=== PATIENT | female | born 1985 | race Caucasian/White ===

== ENCOUNTER 2021-05-17 16:38 | Observation (INO) | payer BC ==
[~2021-05-17] VITALS: Ht 157.5 cm; Wt 110.5 kg
--- NOTE | 2021-05-17 10:30 | NUR ---
1030- Quarter size spot of blood noted in pad. Some blood on toilet paper, but no clots noted. New pad applied. 0015- quarter size spot of blood in pad. Bright red in color. No clots noted in pad or toilet. New pad applied. 0155- quarter size amount of blood in pad. Bright red in color, but no clots noted in pad or toilet. New pad applied. 0400- quarter size amount of blood in pad. Bright red in color. No clots in pad or toilet. New pad applied. 0530- quarter size amount of blood in pad. Bright red in color. No clots in pad or toilet. New pad applied.
[~2021-05-17 16:38] MED LIST: BACTRIM DS 8001 TAB PO; CLEOCIN HCL300 MG PO; CRYSELLE 30 MCG1 TAB PO; DOXYCYCLINE 10100 MG PO; MIRENA52 MG IU; MULTIPLE VITAMI1 TA5 PO; MULTIPLE VITAMI1 TAB PO; MVI; PREDNISONE20 MG PO; PRILOSEC 20MG20 MG PO; VITAMIN C500 MG PO; ZITHROMAX Z PA250 MG PO
[2021-05-17] MEDS ORDERED: PROAIR HFA0.09 MG/AC IH (17:08)
[2021-05-17] MEDS ORDERED: PRENATAL (17:08)
[2021-05-17] MEDS ORDERED: ZOLOFT 100MG100 MG PO (17:09)
[2021-05-17] MEDS ORDERED: VITAMINC1000TA (17:09)
--- NOTE | 2021-05-17 17:25 | NUR ---
1725-G3L3 28.3 week twin gestation patient of Dr. Payan's ambulatory to LR 2 after being seen with vaginal bleeding and had spec exam in office this afternoon. In office cervix was closed. Has had a pad on and pad has minimal old blood. Reports "some movement." placed on EFM. Difficulty tracing heart rates. Continously adjusting monitors. MD to patient room. Bedside sono used to identify twin a and twin b heart rates. Orders to obtain CMP with previosly ordered labs for elevated BP 140's /60's. IV to right hand, blood collected and sent to lab per orders. LR infusing per orders. Assessment complete. 1830-Reported off to oncoming nurse.
[2021-05-17 18:00] VITALS: BP 146/68; PULSE 100
[2021-05-17 18:29] LABS: BASO % 0.2 % (0.0-2.0); EOS # 0.1 (0.0-0.7); EOS % 0.8 % (0-4.0); GRAN # 10.5 (1.4-6.5); GRAN % 79.1 % (42.2-75.2); HEMOGLOBIN 12.2 g/dl (12.5-16.0); LYMPH # 2.1 (1.2-3.4); LYMPH % 15.5 % (20.0-51.0); MEAN CELL VOLUME 96 fl (80.0-100.0); MEAN CORPUSCULAR HEMOGLOBIN 32 pg (27.0-31.0); MEAN CORPUSCULAR HGB CONC 33 g/dl (33.0-37.0); MEAN PLATELET VOLUME 9.7 fl (7.4-10.4); MONO # 0.5 (0.1-0.6); MONO % 3.8 % (1.7-9.3); PLATELET COUNT 333 K/mm3 (130-400); RED BLOOD COUNT 3.81 M/mm3 (4.10-5.30)
[2021-05-17 18:30] VITALS: BP 139/75; PULSE 100
[2021-05-17 18:38] LABS: HEMATOCRIT 36.7 % (37.0-47.0)
[2021-05-17 18:41] LABS: ALBUMIN 3.4 gm/dL (3.5-5.0); BILIRUBIN,TOTAL 0.3 mg/dL (0.0-1.0); CALCIUM 9.5 mg/dL (8.4-10.2); CREATININE, serum 0.39 (0.52-1.25); POTASSIUM 3.8 mmol/L (3.4-5.0); TOTAL PROTEIN 6.3 gm/dL (6.4-8.2)
[2021-05-17 19:00] VITALS: BP 137/79; PULSE 99; TEMP 98.5
[2021-05-17 19:30] VITALS: BP 124/57; PULSE 94
[2021-05-17 20:00] VITALS: BP 133/75; PULSE 96
[2021-05-17 20:24] VITALS: PULSE 93
[2021-05-18 00:30] VITALS: PULSE 90
[2021-05-18 01:00] VITALS: BP 143/78; PULSE 90; TEMP 98.4
--- NOTE | 2021-05-18 01:13 | NUR ---
[id number]: EFM X2 placed. Difficulty tracing FHR X2. RN remains at bedside to adjust monitors. 0138: TOCO placed at this time after FHR found. Pt denies contractions or cramping at this time. Baby B EFM hand held by this RN.
[2021-05-18 01:20] VITALS: PULSE 88
[2021-05-18 06:26] VITALS: BP 154/80; PULSE 82; TEMP 97.8
--- NOTE | 2021-05-18 08:10 | NUR ---
0810- Pt up to void independently. Peripad show scant amount of medium red/brown blood on pad, approximately quarter sized. Pt denies pain, cramping, contractions.
[2021-05-18 11:00] VITALS: BP 131/75; PULSE 89
--- NOTE | 2021-05-18 11:03 | NUR ---
1012- Baby A tracing intermittently with the thin line on monitor paper. 1014- Baby A tracing mostly continuously. 1015- Baby B monitor on, difficut to find and maintain tracing. Assistance provided by RANJANA Baugh and RANJANA Holm. 1045- TOCO on and tracing. Pt denies cramping or contractions. 1049- Baby B tracing mostly continuously. RN remains at bedside holding monitor. 1102- EFM and TOCO off.
--- NOTE | 2021-05-18 15:02 | NUR ---
1502- EFM of baby A applied and tracing well. 1505- EFM for baby B appled, difficulty maintaining a continuous strip. RN remains at bedside holding and adjusting EFM. 1512- TOCO applied. Pt denies cramping or contractions. 1537- EFM and TOCO off. 1545- Dr Payan updated on strip and Pt condition, see physician notification.
[2021-05-18 16:05] VITALS: BP 143/87; PULSE 88; TEMP 97.8
== END 2021-05-18 16:40 | disposition home or self-care (01) ==
LOC: LDR 17:14
PROVIDERS: ADMIT Obstetrics & Gynecology
DX: O46.93 Antepartum hemorrhage, unspecified, third trimester (principal); O30.033 Twin pregnancy, monochorionic/diamniotic, third trimester; Z3A.39 39 weeks gestation of pregnancy; E78.00 Pure hypercholesterolemia, unspecified; K21.9 Gastro-esophageal reflux disease without esophagitis; J45.909 Unspecified asthma, uncomplicated; F41.9 Anxiety disorder, unspecified; F32.9 Major depressive disorder, single episode, unspecified; Z79.899 Other long term (current) drug therapy; Z3A.30 30 weeks gestation of pregnancy; Z82.49 Family history of ischemic heart disease and other diseases of the circulatory system
CPT/HCPCS: G0378; J0702; J7120

== ENCOUNTER → 2021-06-09 | Outpatient (CLI) | payer BC ==
[~2021-06-09] MED LIST changes: +LEVEMIR FLEX100 U/ML SQ; +MOTRIN 800800 MG/TAB PO; +PERCOCET 325 MG1 TA3 PO; +PRENATAL; +PROAIR HFA0.09 MG/AC IH; +PROCARDIA XL 3030 MG PO; +VITAMINC1000TA; +ZOLOFT 100MG100 MG PO
== END ==
LOC: DIA.ED 09:39
DX: O24.419 Gestational diabetes mellitus in pregnancy, unspecified control (principal)
CPT/HCPCS: G0108

== ENCOUNTER 2021-06-27 08:53 | Inpatient (IN) | payer BC ==
[~2021-06-27] VITALS: Ht 157.5 cm; Wt 110.0 kg
[2021-06-27] VITALS (27 sets, daily range): BP systolic 103–186; BP diastolic 55–103; PULSE 64–88; TEMP 97.6–98.8
[~2021-06-27 08:53] MED LIST changes: -LEVEMIR FLEX100 U/ML SQ; -MOTRIN 800800 MG/TAB PO; -PERCOCET 325 MG1 TA3 PO; -PROCARDIA XL 3030 MG PO
--- NOTE | 2021-06-27 09:25 | NUR ---
Admits to L&D, ambulatory, accompanied by spouse, with c/o "My water broke at home at 0730 this am." Reports she was lying in bed, had just emptied bladder less than an hour earlier, and felt a huge gush of water.
--- NOTE | 2021-06-27 09:45 | NUR ---
Initial SVE /-2, no gel used with explanation to patient prior to exam. Amnitrace positive. notified @ 3007. Telephone orders received, on chart.
[2021-06-27] MEDS ORDERED: ZOLOFT 100MG100 MG PO (09:54)
[2021-06-27] MEDS ORDERED: LEVEMIR FLEX100 U/ML SQ (09:58)
--- NOTE | 2021-06-27 10:35 | NUR ---
here for evaluation. Discusses possibility of shipping patient to higher level of care facility, as infants have increased risk of requiring higher level of nursery care, with mom being IDGDM, and infants being pre-term. Discussed would evaluate to see if it is safe to transfer. Upon SVE, note patient has made some cervical change. Patient states, "Honestly, I don't think we have time to transfer. I feel like it is going fast. My contractions are getting stronger."
[2021-06-27 10:58] LABS: HEMATOCRIT 40.8 % (37.0-47.0); MEAN CELL VOLUME 94 fl (80.0-100.0); MEAN CORPUSCULAR HEMOGLOBIN 32 pg (27.0-31.0); MEAN CORPUSCULAR HGB CONC 34 g/dl (33.0-37.0); PLATELET COUNT 174 K/mm3 (130-400); RED BLOOD COUNT 4.35 M/mm3 (4.10-5.30); REDCELL DISTRIBUTION WIDTH-CV 14.8 % (11.5-14.5)
[2021-06-27 11:13] LABS: ALBUMIN 2.2 gm/dL (3.5-5.0); BILIRUBIN,TOTAL 0.6 mg/dL (0.2-1.2); CALCIUM 9.1 mg/dL (8.4-10.2); CREATININE, serum 0.83 mg/dL (0.57-1.11); POTASSIUM 4.5 mmol/L (3.5-4.5)
--- NOTE | 2021-06-27 11:19 | NUR ---
TAHIR Cat, here for epidural placement per patient request. Single shot dose by Linda Francisco @ 1128. After threading catheter, announces catheter was threaded through vein, so needs to replace epidural. Patient verbalizes understanding. 2nd single shot dose in 2nd epidural space @ 1132. Patient tolerates procedure well. No adverse reactions noted.
--- NOTE | 2021-06-27 11:23 | NUR ---
Sitting up @ side of bed for epidural placement. Off of EFM during time of epidural placement [id number].
[2021-06-27 11:37] LABS: BAND 3 % (0-10); EOSINOPHIL 2 % (0-4); LYMPHOCYTE 45 % (20.0-51.0); NEUTROPHILS 43 % (42.0-75.2); PLATELET ESTIMATE NORMAL (NORMAL)
--- NOTE | 2021-06-27 12:26 | NUR ---
Transferred to OR in preparation for twin gestation delivery per bed @ this time. /TAHIR Cat, notified. 1228-EFM restarted once in OR. 1238-Emory Hollis CRNA, here for delivery. Braden RN, Lupis, RN, Alta, RN, Eris, RN, and Jordyn, RANJANA, all additional staff in for delivery. , site specialist also present.
--- NOTE | 2021-06-27 12:40 | NUR ---
C/+2 per . Pushes one time during one contraction. 1243-Rapid of male , baby A by over intact perineum. [id number]: Ultrasound guided multiple attempts at external cephalic version by /. Attempts all unsuccessful, fetus remains footling breech. makes decision to proceed with primary section. Patient/spouse verbalize understanding. Abdominal prep by . 1300-Surgery start. 1302- delivery of 2nd male (baby B), passed off to nursery nurses/. Note infant footling breech. 1304-Placenta expressed by /.
--- NOTE | 2021-06-27 12:45 | NUR ---
Note OR tech in room Ebenezer Alexander, travel tech, not in system under PCW. Per Ebenezer, user name [id number].
--- NOTE | 2021-06-27 15:11 | NUR ---
Rating pain "15" of 10 @ this time.
--- NOTE | 2021-06-27 21:30 | NUR ---
2130-PT AVERAGING 30ML PER HOUR URINE OUTPUT WITH DARK YELLOW URINE NOTED IN DRAINING INTO BURGESS. PT ENCOURAGED SEVERAL TIMES TO DRINK MORE WATER AND FLUIDS. WILL CONTINUE TO MONITOR URINARY OUTPUT.
--- NOTE | 2021-06-27 22:30 | NUR ---
2229-DR OLSON NOTIFIED OF POOR URINARY OUTPUT OF 30ML PER HOUR OR LESS SINCE 1800 TONIGHT. ORDERS RECEIVED TO GIVE 500ML IV BOLUS OF LR AND THEN INFUSE AT 125ML/HOUR AFTERWARDS. 2244-VSS AT [facility] LR STARTED AT THIS TIME
--- NOTE | 2021-06-28 00:20 | NUR ---
0020-IV FLUID BOLUS OF 500ML HAS INFUSED AND IV RATE DECREASED TO 125/HR PER PUMP. 70ML URINE NOTED AFTER 90MIN. PT DENIES NEEDS AT THIS TIME.
--- NOTE | 2021-06-28 03:00 | NUR ---
0300-PT SLEEPING. 60ML URINE OUTPUT NOTED FROM PAST 90MIN. WILL CONTINUE TO MONITOR.
[2021-06-28 03:55] VITALS: BP 139/83; PULSE 79; TEMP 97.7
--- NOTE | 2021-06-28 04:00 | NUR ---
0400-VSS AND PT ASSISTED IN SITTING AT SIDE OF BED, DANGLING, AND THEN STANDING. PT RETURNED TO BED AT 0410 AND PERICARE AND CATH CARE DONE.
[2021-06-28 07:45] VITALS: BP 130/83; PULSE 86; TEMP 97.8
--- NOTE | 2021-06-28 10:11 | NUR ---
Initial visit; Patient thanked Group Product Manager for offering congratulations and God's blessings for the of her twin boys. Group Product Manager thanked patient for choosing [facility].
[2021-06-28 12:20] VITALS: BP 101/48; PULSE 94; TEMP 97.5
[2021-06-28 17:05] VITALS: BP 132/78; PULSE 77; TEMP 97.6
--- NOTE | 2021-06-28 20:11 | NUR ---
1900 - PT IN NURSERY VISITING BABIES
[2021-06-28 20:20] VITALS: BP 141/81; PULSE 65; TEMP 99.2
--- NOTE | 2021-06-28 23:02 | NUR ---
SALINE LOCK TO LEFT INNER WRIST DC'D, CATHETER INTACT. PRESSURE DSG APPLIED
[2021-06-29 08:30] VITALS: BP 151/84; PULSE 100; TEMP 98.2
[2021-06-29] MEDS ORDERED: PROCARDIA XL 3030 MG PO (08:39)
[2021-06-29] MEDS ORDERED: MOTRIN 800800 MG/TAB PO (08:40)
[2021-06-29] MEDS ORDERED: PERCOCET 325 MG1 TA3 PO (08:40)
[2021-06-29 16:30] VITALS: BP 148/92; PULSE 98; TEMP 98.4
[2021-06-29 21:30] VITALS: BP 117/53; PULSE 94; TEMP 98.5
[2021-06-30 07:45] VITALS: BP 155/92; PULSE 89; TEMP 97.8
--- NOTE | 2021-06-30 09:30 | NUR ---
Discharge instructions reviewed. Patient to boarder status.
== END 2021-06-30 09:30 | disposition home or self-care (01) | DRG 786 ==
LOC: LDRO 08:53 → OB 09:50 → LDR 09:50 → OB 14:15
PROVIDERS: ADMIT Obstetrics & Gynecology
PROC: 10D00Z1 Extraction of Products of Conception, Low, Open Approach (ICD-10-PCS; principal; 2021-06-27)
DX: O32.1XX2 Maternal care for breech presentation, fetus 2 (principal); K83.1 Obstruction of bile duct; O10.92 Unspecified pre-existing hypertension complicating childbirth; O26.62 Liver and biliary tract disorders in childbirth; O30.033 Twin pregnancy, monochorionic/diamniotic, third trimester; O99.214 Obesity complicating childbirth; O99.344 Other mental disorders complicating childbirth; F32.A Depression, unspecified; F41.9 Anxiety disorder, unspecified; O24.424 Gestational diabetes mellitus in childbirth, insulin controlled; O75.89 Other specified complications of labor and delivery; G47.30 Sleep apnea, unspecified; O76 Abnormality in fetal heart rate and rhythm complicating labor and delivery; Z37.2 Twins, both liveborn; Z3A.34 34 weeks gestation of pregnancy; Z23 Encounter for immunization
CPT/HCPCS: J0690; J1885; J2270; J2370; J2400; J2405; J2540; J2590; J2795; J7120

== ENCOUNTER → 2022-01-03 | Outpatient (CLI) | payer BC ==
[~2022-01-03] MED LIST changes: +LEVEMIR FLEX100 U/ML SQ; +MOTRIN 800800 MG/TAB PO; +PERCOCET 325 MG1 TA3 PO; +PROCARDIA XL 3030 MG PO
== END ==
LOC: COL.RAD 09:45
DX: M47.817 Spondylosis without myelopathy or radiculopathy, lumbosacral region (principal); M51.24 Other intervertebral disc displacement, thoracic region

== ENCOUNTER → 2022-02-14 | Outpatient (CLI) | payer BC | LOC: MHCPAIN 15:02 | DX: M47.814 Spondylosis without myelopathy or radiculopathy, thoracic region (principal); M47.816 Spondylosis without myelopathy or radiculopathy, lumbar region; M54.15 Radiculopathy, thoracolumbar region | CPT/HCPCS: G0463 ==

== ENCOUNTER → 2022-02-27 | Outpatient (CLI) | payer BC | LOC: MHCPAIN 14:26 | DX: M47.816 Spondylosis without myelopathy or radiculopathy, lumbar region (principal); M47.814 Spondylosis without myelopathy or radiculopathy, thoracic region; M54.14 Radiculopathy, thoracic region; M54.16 Radiculopathy, lumbar region | CPT/HCPCS: J1100; Q9967 ==

== ENCOUNTER 2022-03-08 16:30 | Outpatient (RCR) | payer BC | END 2022-03-09 | disposition home or self-care (01) | LOC: WSPT | DX: M47.814 Spondylosis without myelopathy or radiculopathy, thoracic region (principal) ==

== ENCOUNTER 2022-04-04 15:45 | Outpatient (RCR) | payer BC | END 2022-04-09 | disposition home or self-care (01) | LOC: WSPT | DX: M47.814 Spondylosis without myelopathy or radiculopathy, thoracic region (principal) ==

== ENCOUNTER → 2022-04-05 | Outpatient (CLI) | payer BC | LOC: MHCPAIN 08:17 | DX: M54.6 Pain in thoracic spine (principal); M54.50 Low back pain, unspecified; F17.210 Nicotine dependence, cigarettes, uncomplicated | CPT/HCPCS: G0463 ==

== ENCOUNTER → 2022-05-10 | Outpatient (RCR) | payer BC | END | disposition home or self-care (01) | LOC: WSPT | DX: M47.814 Spondylosis without myelopathy or radiculopathy, thoracic region (principal) ==

== ENCOUNTER 2022-07-07 08:45 | Outpatient (RCR) | payer BC | END 2022-07-10 | disposition home or self-care (01) | LOC: WSPT | DX: M47.814 Spondylosis without myelopathy or radiculopathy, thoracic region (principal) ==